=== PATIENT | female | born 1995 | race Caucasian/White ===

== ENCOUNTER 2018-05-21 13:40 | Emergency (ER) | payer MEDICAID ==
[2018-05-21 14:01] VITALS: BP 130/82
--- NOTE | 2018-05-21 14:22 | UC ---
UC General HPI - HPI Summary HPI Summary: pt c/o episodic sharp pains in her L lower abdomen x 4 days. no n/v/d or dysuria. denies any vaginal d/c, odor or lesions. pt notes hx irregular periods. - History of Current Complaint Chief Complaint: UCAbdominalPain Stated Complaint: ABD PAIN Time Seen by Provider: 05/21/18 13:54 Hx Obtained From: Patient Hx Last Menstrual Period: FEB 2019 Pain Intensity: 9 Aggravating: nothing but told triage food. Associated Signs & Symptoms: Negative: Fever - Allergy/Home Medications Allergies/Adverse Reactions: Allergies Allergy/AdvReac Type Severity Reaction Status Date / Time No Known Allergies Allergy Verified 05/21/18 13:55 Home Medications: Home Medications Oral Bcp 1 tab PO DAILY 05/21/18 [History] Sulfamethox/Trimethoprim DS* [Bactrim DS 800/160 TAB*] 1 tab PO BID 05/21/18 [ History Confirmed 05/21/18] PMH/Surg Hx/FS Hx/Imm Hx Previously Healthy: Yes - Surgical History Surgical History: None - Family History Known Family History: Positive: None - Social History Alcohol Use: None Substance Use Type: None Smoking Status (MU): Never Smoked Tobacco Review of Systems All Other Systems Reviewed And Are Negative: Yes Constitutional: Positive: Negative Skin: Positive: Negative Eyes: Positive: Negative ENT: Positive: Negative Respiratory: Positive: Negative Cardiovascular: Positive: Negative Gastrointestinal: Negative: Vomiting, Diarrhea, Nausea Genitourinary: Positive: Negative Motor: Positive: Negative Neurovascular: Positive: Negative Musculoskeletal: Positive: Negative Neurological: Positive: Negative Psychological: Positive: Negative Physical Exam Triage Information Reviewed: Yes Appearance: Well-Appearing Vital Signs: Initial Vital Signs Temp 98 F 05/21/18 13:56 Pulse 90 05/21/18 13:56 Resp 15 05/21/18 13:56 BP 130/82 05/21/18 13:56 Pulse Ox 97 05/21/18 13:56 Vital Signs Reviewed: Yes Eyes: Positive: Conjunctiva Clear ENT: Positive: Normal ENT inspection Neck: Positive: Supple, Nontender, No Lymphadenopathy Respiratory: Positive: Lungs clear, Normal breath sounds Cardiovascular: Positive: RRR, No Murmur Abdomen Description: Positive: Other: - Flat, +BS, soft, tender L lower abdomen- adnexal area. No mass, HSM or cva tenderness. No guarding or rebound tenderness. Pelvic Exam: Positive: Other - Pt refusing citing no vaginal discharge or lesions. Musculoskeletal: Positive: ROM Intact Neurological: Positive: Alert Psychological: Positive: Age Appropriate Behavior Skin Exam: Normal Diagnostics - Laboratory Diagnostic Studies Completed/Ordered: u/a=trace blood/leukocytes with culture pending. urine hcg=neg - Radiology No standard instances Radiology Interpretation Completed By: Radiologist - pelvic u/s=IMPRESSION: 1. PROMINENCE OF THE VASCULATURE ALONG THE BROAD LIGAMENT BILATERALLY. WHILE NONSPECIFIC, THIS CAN BE ASSOCIATED WITH PELVIC CONGESTION SYNDROME IN THE CORRECT CLINICAL SETTING. 2. OTHERWISE UNREMARKABLE ULTRASOUND OF THE PELVIS. NO SONOGRAPHIC FEATURES OF TORSION. PLEASE NOTE THAT PARTIAL OR INTERMITTENT TORSION MAY BE SONOGRAPHICALLY NORMAL. Course/Dx - Differential Dx - Multi-Symptom Differential Diagnoses: Other - hcg=neg. u/a=trace bld/leukocytes and no urinanry s/s's. pelvic u/s=no ovarian cyts or torsion. no acute abdomen. pt refused pelvic exam. possible Mittelschmerz. - Diagnoses Provider Diagnosis: Abdominal pain Discharge - Sign-Out/Discharge Documenting (check all that apply): Patient Departure All imaging exams completed and their final reports reviewed: Yes - Discharge Plan Condition: Stable Disposition: HOME Prescriptions: Naproxen [Naprosyn 500 mg tab] 500 mg PO BID PRN #10 tablet PRN Reason: Pain Patient Education Materials: Abdominal Pain (ED), Pelvic Pain (ED) Referrals: JESSICA Childers [Primary Care Provider] - 5 Days Additional Instructions: FOLLOW UP WITH N FOR A RECHECK AND TO ESTABLISH PRIMARY CARE. GO TO ER FOR ANY WORSENING. - Billing Disposition and Condition Condition: STABLE Disposition: Home - Attestation Statements Provider Attestation: Per institutional requirements, I have reviewed the chart, however, I was not consulted specifically or made aware of this patient by the midlevel provider. I did not personally evaluate, interact with , or disposition this patient.
== END 2018-05-21 15:40 | disposition home or self-care (01) ==
LOC: UCCORT 13:40
DX: R10.32 Left lower quadrant pain (principal)
CPT/HCPCS: 76830; 81003; 84702; 87086; 99212; G0463